=== PATIENT | male | born 1995 | race African-American/Black ===

== ENCOUNTER 2017-07-12 11:24 | Inpatient (IN) | payer SELFPAY ==
[~2017-07-12] VITALS: Ht 182.9 cm; Wt 70.5 kg
--- OUTSIDE RECORDS SUMMARY | 2017-07-12 11:31 | XMS REPORT ---
Author Author AVELINO SHELLEY Organization [employer] Address Unknown Phone Unavailable Care Team Providers Care Addressing Machine Operator Name Role Phone AVELINO SHELLEY CP Unavailable Allergies, Adverse Reactions, Alerts Substance Reaction Event Type N.K.D.A. Info Not Available Non Drug Allergy Problems Problem Type Condition Code Onset Dates Condition Status Problem Allergic rhinitis, cause unspecified 477.9 Active Problem GARDASIL (HPV) DX V04.89 Active Problem DTAP TEST V06.1 Active Problem MENINGOCOCCAL DX V03.89 Active Assessment Epistaxis R04.0 Active Medications No Known Medications Procedures Procedure Coding System Code Date Office Visit, Est Pt., Level 3 CPT-4 99021 Dec 13, 2014 Vital Signs Date/Time: Dec 13, 2014 Temperature 98.0 F Weight 149.8 lbs Height 67.75 in BMI 22.94 Index Blood Pressure Diastolic 78 mmHg Blood Pressure Systolic 126 mmHg Results No Known Results Summary Purpose [employer] Submission
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
[2017-07-12] MEDS ORDERED: CLINDAMYCIN 300 MG/2ML (CLEOCIN) VIAL IM SCH (12:00)
[2017-07-12] MEDS ORDERED: AMOX-358 PO (12:11)
[2017-07-12] MEDS ORDERED: HYDR-757 PO (12:11)
--- NOTE | 2017-07-12 12:11 | Diagnostic Imaging Report ---
PROCEDURE: CT maxillofacial without contrast. TECHNIQUE: Multiple contiguous axial images were obtained through the facial bones without the use of intravenous contrast. INDICATION: Left eye swelling x4-5 days. FINDINGS: There is prominent asymmetric left periorbital soft tissue swelling as well as asymmetric gas collections along the inferior surface of the globe. There is very slight offset about the medial aspect of the left orbital floor as well as at the inferior margins of the lamina papyracea suggestive of a relatively nondisplaced fracture. There is mucosal thickening in this region. Additional soft tissue density is noted dependently and inferiorly with slight increased density could be reflective of some blood contents. The lateral wall and roof are maintained. Retro-orbital structures appearing relatively symmetric. The right orbital argueta and floor appearing unremarkable. Trace mucosal thickening in the right maxillary sinus. Minimal leftward nasal septal deviation and nasal spur formation. Scattered areas of opacification of multiple ethmoid air cells. Partial opacification of the sphenoid sinus. IMPRESSION: 1. Findings are consistent with a relatively nondisplaced fracture involving the medial left orbital floor and inferior medial wall. 2. Rather prominent soft tissue swelling and gas collections in and around the left globe concerning for potential preseptal periorbital cellulitis. Clinical correlation recommended. 3. Blood products or mucosal thickening within left maxillary sinus. Additional areas of sinusitis are present. Dictated by: Dictated on workstation # [id number]
[2017-07-12] MEDS ORDERED: CLINDAMYCIN 900 MG/50 ML IVPB 50 ML IV ONE (12:45)
[2017-07-12 12:48] LABS: BASOPHILS % (AUTO) 1 % (0-10); EOSINOPHILS # (AUTO) 0.1 10^3/uL (0.0-0.3); EOSINOPHILS % (AUTO) 1 % (0-10); HEMATOCRIT 42 % (40-54); HEMOGLOBIN 14.4 G/DL (13.3-17.7); LYMPHOCYTES # (AUTO) 1.9 X 10^3 (1.0-4.0); LYMPHOCYTES % (AUTO) 30 % (12-44); MEAN CORPUSCULAR HEMOGLOBIN 30 PG (25-34); MEAN CORPUSCULAR HGB CONC 34 G/DL (32-36); MEAN CORPUSCULAR VOLUME 89 FL (80-99); MONOCYTES # (AUTO) 0.6 X 10^3 (0.0-1.0); MONOCYTES % (AUTO) 10 % (0-12); NEUTROPHILS # (AUTO) 3.8 X 10^3 (1.8-7.8); NEUTROPHILS % (AUTO) 59 % (42-75); PLATELET COUNT 249 10^3/uL (130-400); RED BLOOD COUNT 4.77 10^6/uL (4.35-5.85); RED CELL DISTRIBUTION WIDTH 13.6 % (10.0-14.5); WHITE BLOOD COUNT 6.4 10^3/uL (4.3-11.0)
[2017-07-12 13:06] LABS: ALANINE AMINOTRANSFERASE 32 U/L (0-55); ALBUMIN 4.1 GM/DL (3.2-4.5); ALKALINE PHOSPHATASE 84 U/L (40-136); BILIRUBIN,TOTAL 0.8 MG/DL (0.1-1.0); BUN/CREATININE RATIO 14; CALCIUM 9.4 MG/DL (8.5-10.1); CARBON DIOXIDE 21 MMOL/L (21-32); CHLORIDE 109 MMOL/L (98-107); CREATININE SERUM 0.95 MG/DL (0.60-1.30); GFR ESTIMATED > 60; GLUCOSE 96 MG/DL (70-105); POTASSIUM 4.6 MMOL/L (3.6-5.0); SODIUM 139 MMOL/L (135-145); TOTAL PROTEIN 7.2 GM/DL (6.4-8.2)
[2017-07-12] MEDS ORDERED: NS IV 1000 ML 1,000 ML ONE (13:37)
[2017-07-12] MEDS: NS IV 1000 ML 1,000 ML IV SCH ×2 (14:00→23:44)
[2017-07-12 15:35] VITALS: BP 114/69
[2017-07-12] MEDS ORDERED: ACET325T49 PO (15:39)
[2017-07-12] MEDS ORDERED: IBUP-2055 PO (15:39)
[2017-07-12 19:55] VITALS: BP 124/72
[2017-07-12] MEDS: CLINDAMYCIN 900 MG/50 ML IVPB 50 ML IV SCH (22:02)
[2017-07-12] MEDS: HYDROcodone/APAP 5 MG/325 MG (LORTAB) TAB PO PRN (22:02)
[2017-07-12] MEDS: LACTOBACILLUS Acidoph/Bulgar (LACTINEX/FLORANEX) TAB PO SCH (22:02)
[2017-07-13] VITALS: BP 106/65
[2017-07-13] MEDS: HYDROcodone/APAP 5 MG/325 MG (LORTAB) TAB PO PRN ×2 (03:32→22:02)
[2017-07-13 03:56] VITALS: BP 116/67
[2017-07-13] MEDS: CLINDAMYCIN 900 MG/50 ML IVPB 50 ML IV SCH ×3 (05:21→21:57)
[2017-07-13 07:59] VITALS: BP 117/70
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
[2017-07-13] MEDS: LACTOBACILLUS Acidoph/Bulgar (LACTINEX/FLORANEX) TAB PO SCH ×3 (08:32→21:57)
[2017-07-13] MEDS ORDERED: CATHETER FLUSH 10 ML SYR IV PRN (11:30)
[2017-07-13 11:49] VITALS: BP 110/57
[2017-07-13] MEDS: CATHETER FLUSH 10 ML SYR IV SCH ×2 (13:24→22:02)
[2017-07-13 16:15] VITALS: BP 123/71
[2017-07-13 20:20] VITALS: BP 106/59
[2017-07-14] VITALS: BP 124/62
[2017-07-14] MEDS: CATHETER FLUSH 10 ML SYR IV SCH (06:29)
[2017-07-14] MEDS: CLINDAMYCIN 900 MG/50 ML IVPB 50 ML IV SCH (06:29)
[2017-07-14] MEDS: LACTOBACILLUS Acidoph/Bulgar (LACTINEX/FLORANEX) TAB PO SCH (08:14)
[2017-07-14] MEDS: HYDROcodone/APAP 5 MG/325 MG (LORTAB) TAB PO PRN (08:14)
[2017-07-14] MEDS ORDERED: ACHD5005 PO (08:25)
[2017-07-14] MEDS ORDERED: CLIN300C11 PO (08:25)
--- NOTE | 2017-07-14 08:29 | Discharge Inst-Simple/Standard ---
Discharge Inst-Standard Discharge Medications New, Converted or Re-Newed RX: Call to Patients Pharmacy Patient Instructions/Follow Up Plan of Care/Instructions/FU: Please continue to take your medications as written. It is very important to follow up with Dr King and Dr Wilkes as recommended. Activity as Tolerated: Yes Discharge Diet: No Restrictions Return to The Hospital For: Decreased vision, double vision, lose of visoin, increased swelling, if you feel you are getting worse TERRI BERG MD July 14, 2017 08:29
[2017-07-14 08:30] VITALS: BP 113/76
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
== END 2017-07-14 11:30 | disposition home or self-care (01) | DRG 603 ==
LOC: EDUNIT# 11:24 → ER 11:28 → 4TH 12:56
PROVIDERS: ADMIT Internal Medicine; ATTEND Internal Medicine
DX: L03.213 Periorbital cellulitis (principal); S02.32XA Fracture of orbital floor, left side, initial encounter for closed fracture; S02.82XA Fracture of other specified skull and facial bones, left side, initial encounter for closed fracture; H11.32 Conjunctival hemorrhage, left eye; F17.210 Nicotine dependence, cigarettes, uncomplicated; Y04.0XXA Assault by unarmed brawl or fight, initial encounter
CPT/HCPCS: 36415; 70486; 80053; 85025; 96365

== ENCOUNTER 2020-11-05 11:09 | Emergency (ER) | payer SELFPAY ==
[~2020-11-05] VITALS: Ht 175.3 cm; Wt 77.1 kg
[~2020-11-05 11:09] MED LIST: ACET325T49 PO; ACHD5005 PO; AMOX-358 PO; CLIN300C12 PO; HYDR-4226 PO; IBUP-2473 PO
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
[2020-11-05 12:22] VITALS: BP 156/84
== END 2020-11-05 12:22 | disposition home or self-care (01) ==
LOC: EDUNIT# 11:09 → ER 11:11
DX: F15.921 Other stimulant use, unspecified with intoxication delirium (principal); F17.210 Nicotine dependence, cigarettes, uncomplicated
CPT/HCPCS: 99281

== ENCOUNTER 2022-07-24 14:25 | Emergency (ER) | payer SELFPAY ==
[~2022-07-24] VITALS: Ht 175.3 cm; Wt 70.6 kg
[~2022-07-24 14:25] MED LIST changes: +CLIN-144 PO; -CLIN300C12 PO
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
[2022-07-24] MEDS ORDERED: IBUPROFEN 800 MG (MOTRIN) TAB PO ONE (15:00)
[2022-07-24] MEDS ORDERED: LIDOCAINE 1% INJ 20 ML VIAL INJ ONE (15:15)
--- NOTE | 2022-07-24 15:15 | Diagnostic Imaging Report ---
EXAMINATION: Right hand radiographs, 3 views. COMPARISON: None. HISTORY: 26-year-old male, right hand pain. FINDINGS: There is a displaced fracture of the distal metaphysis of the fifth metacarpal with volar angulation of the distal fracture fragment. There is overlying soft tissue swelling. There is no identified subluxation or dislocation. There is no identified radiopaque foreign body. IMPRESSION: 1. Displaced and angulated fracture of the distal metaphysis of the fifth metacarpal. 2. No radiopaque foreign body. Dictated by: Dictated on workstation # [id number]
--- NOTE | 2022-07-24 16:01 | Diagnostic Imaging Report ---
EXAMINATION: Right hand radiographs, 3 views. COMPARISON: July 24, 2022 at 1457 hours. HISTORY: 26-year-old male, right fifth metacarpal fracture. FINDINGS: There is a redemonstrated displaced and volarly angulated fracture of the distal aspect of the fifth metacarpal at the level of the distal metaphysis without identified intra-articular fracture extension. Bone alignment is essentially unchanged since comparison exam. There has been placement of overlying cast material. IMPRESSION: 1. Redemonstrated fracture of the fifth metacarpal without interval change in bone alignment. 2. Interval placement of overlying cast material. Dictated by: Dictated on workstation # [id number]
[2022-07-24 16:05] VITALS: BP 110/73
== END 2022-07-24 16:05 | disposition home or self-care (01) ==
LOC: EDUNIT# 14:25 → ER 14:28
DX: S62.396A Other fracture of fifth metacarpal bone, right hand, initial encounter for closed fracture (principal); Z28.310 Unvaccinated for COVID-19; Y04.8XXA Assault by other bodily force, initial encounter
CPT/HCPCS: 73130

== ENCOUNTER → 2022-07-30 | Outpatient (CLI) | payer SELFPAY ==
[~2022-07-30] MED LIST changes: +OXC5T PO
== END ==
LOC: ORTHO 10:26
PROVIDERS: ATTEND Orthopaedic Surgery
DX: S62.306A Unspecified fracture of fifth metacarpal bone, right hand, initial encounter for closed fracture (principal); X58.XXXA Exposure to other specified factors, initial encounter
CPT/HCPCS: 99203

== ENCOUNTER 2022-07-31 05:30 | Outpatient (CLI) | payer SELFPAY ==
[~2022-07-31] VITALS: Ht 175.3 cm; Wt 68.0 kg
[~2022-07-31 05:30] MED LIST changes: -OXC5T PO
[2022-08-01] MEDS ORDERED: OXC5T PO (11:49)
== END 2022-07-31 14:44 | disposition home or self-care (01) ==
LOC: PREOP 05:30
PROVIDERS: ATTEND Orthopaedic Surgery
DX: Z01.818 Encounter for other preprocedural examination (principal)

== ENCOUNTER 2022-08-01 09:18 | Day surgery (SDC) | payer SELFPAY ==
[~2022-08-01] VITALS: Ht 175.3 cm; Wt 68.0 kg
[2022-08-01] VITALS (12 sets, daily range): BP systolic 113–153; BP diastolic 88–108
--- NOTE | 2022-08-01 09:51 | Progress Note-Pre Operative ---
Pre-Operative Progress Note Date of Available H&P: July 30, 2022 Date H&P Reviewed: Aug 01, 2022 Time H&P Reviewed: 09:45 History & Physical: H&P Reviewed, Patient Examed, No changes noted Pre-Operative Diagnosis: Right Fifth Metacarpal Neck Fracture DEIRDRE ALFONSO MD Aug 01, 2022 09:51
[2022-08-01] MEDS ORDERED: fentaNYL INJ 100 MCG/2 ML AMP ONE (09:52)
[2022-08-01] MEDS ORDERED: SEVOFLURANE (ULTANE) 15 ML INHAL SOLN ONE (09:52)
[2022-08-01] MEDS ORDERED: MIDAZOLAM 2 MG/2 ML (VERSED) VIAL ONE (09:52)
[2022-08-01] MEDS ORDERED: proPOfol 200 MG/20 ML (DIPRIVAN) VIAL IV ONE (09:52)
[2022-08-01] MEDS ORDERED: LIDOCAINE PF 2% 5 ML (XYLOCAINE) VIAL ONE (09:52)
[2022-08-01] MEDS ORDERED: ONDANSETRON 4 MG/2 ML (SDV) Z0FRAN ONE (09:52)
[2022-08-01] MEDS ORDERED: BUPIVACAINE 0.5% 30 ML (SENSORCAINE) VIAL ONE (09:53)
[2022-08-01] MEDS ORDERED: LACTATED RINGERS 1,000 ML IV PRN (10:00)
[2022-08-01] MEDS ORDERED: ceFAZolin INJECTION 2,000 MG in NS (IVPB) 50 ML IV ONE (10:00)
[2022-08-01] MEDS ORDERED: ceFAZolin INJECTION 2,000 MG ONE (10:05)
[2022-08-01] MEDS ORDERED: NS (IVPB) 50 ML ONE (10:05)
--- NOTE | 2022-08-01 11:43 | Anesthesia-General Post-Op ---
General Patient Condition Mental Status/LOC: Same as Preop Cardiovascular: Satisfactory Nausea/Vomiting: Absent Respiratory: Satisfactory Pain: Controlled Complications: Absent Post Op Complications Complications None Follow Up Care/Instructions Patient Instructions None needed. Anesthesia/Patient Condition Patient Condition Patient is doing well, no complaints, stable vital signs, no apparent adverse anesthesia problems. No complications reported per nursing. BRIAN CEDRA CRNA Aug 01, 2022 11:43
[2022-08-01] MEDS ORDERED: HYDROmorphone 2 MG/ML VIAL (DILAUDID) IV ONE (11:45)
[2022-08-01] MEDS ORDERED: morphine INJ 10 MG/ML 1ML (SYR OR VIAL) IVP ONE (11:45)
[2022-08-01] MEDS ORDERED: MEPERIDINE (DEMEROL) INJ 50 MG/ML IVP ONE (11:45)
[2022-08-01] MEDS ORDERED: ONDANSETRON 4 MG/2 ML (SDV) Z0FRAN IVP PRN (11:45)
--- NOTE | 2022-08-01 11:46 | Operative Report - Ortho ---
Operative Report Surgeon (s)/Mine Engineering Supervisor (s) Surgeon DEIRDRE ALFONSO MD Mine Engineering Supervisor n/a Pre-Operative Diagnosis Right Fifth Metacarpal Neck Fracture Post-Operative Diagnosis same Operative Report Date of Procedure: Aug 01, 2022 Name of Procedure Performed: Closed Reduction and Percutaneous Pinning of Right Fifth Metcarpal Fracture Description & Findings After obtaining informed consent and marking the patient in the preoperative holding area. Patient was taken to the operating room and anesthesia was induced. Surgical timeout was taken. The right upper extremity was prepped and draped in the usual sterile fashion. C-arm was used to visualized the entire length of the 5th metacarpal. Incision was made at the base of the metacarpal. A drill was then used to make an entry point into the base of the metacarpal. A prebent 1.6 K-wire was inserted through the entry point and pliers and a small mallet was used to advance the tip of the wire to the fracture site. Fracture was then reduced using ulnar deviation, hyperextension, and dorsal pressure. The K-wire was driven across the fracture site into the subchondral bone. Wire was cut subcutaneously. Final C-arm images demonstrated appropriate reduction of the fracture and were saved. The incision was closed with 4-0 nylon suture. Wound was dressed with xeroform, 4x4s, and elsa. An ulnar gutter splint was applied and secured with an SHARIFA wrap. Patient tolerated the procedure well and was stable to the recovery room. Anesthesia Type General Estimated Blood Loss minimal Specimen(s) collected/removed None DEIRDRE ALFOSNO MD Aug 01, 2022 11:46
[2022-08-01] MEDS ORDERED: OXC5T PO (11:49)
== END 2022-08-01 14:30 | disposition home or self-care (01) ==
LOC: SDC 09:18
PROVIDERS: ATTEND Orthopaedic Surgery
DX: S62.336A Displaced fracture of neck of fifth metacarpal bone, right hand, initial encounter for closed fracture (principal); F17.290 Nicotine dependence, other tobacco product, uncomplicated; F17.210 Nicotine dependence, cigarettes, uncomplicated; W50.0XXA Accidental hit or strike by another person, initial encounter; Z28.310 Unvaccinated for COVID-19
CPT/HCPCS: 87081

== ENCOUNTER → 2022-08-14 | Outpatient (CLI) | payer SELFPAY ==
[~2022-08-14] MED LIST changes: +OXC5T PO
== END ==
LOC: ORTHO 10:32
PROVIDERS: ATTEND Orthopaedic Surgery
DX: Z47.89 Encounter for other orthopedic aftercare (principal)